=== PATIENT | male | born 1960 | race Caucasian/White ===

== ENCOUNTER 2019-08-10 14:18 | Outpatient (CLI) | payer OTHER ==
--- NOTE | 2019-08-10 14:37 | RAD ---
XR Chest Pa Lat @ [facility] History: Dyspnea Comparison: None. Findings: Lungs are clear. No pneumothorax or effusion. Cardiac silhouette and mediastinal contours a re within normal limits. No acute osseous abnormality. Impression: No acute intrathoracic abnormality.
== END 2019-08-10 14:19 | disposition home or self-care (01) ==
LOC: RAD 14:18
PROVIDERS: ATTEND Internal Medicine Pulmonary Disease
DX: R06.00 Dyspnea, unspecified (principal)
CPT/HCPCS: 71046

== ENCOUNTER 2023-09-14 18:18 | Emergency (ER) | payer MEDICARE, OTHER ==
[~2023-09-14 18:18] MED LIST: Iopamidol-370 76% 500 ML MDV (1 ML CHARGE) ONE
[2023-09-14 20:09] LABS: #Basophils 0.1 thou/uL (0.0-0.2); #Eosinphils 0.3 thou/uL (0.0-0.7); #Monocytes 0.5 thou/uL (0.11-0.59); #Neutrophils 3.8 thou/uL (1.40-6.50); %Basophils 0.7 % (0.0-1.0); %Eosinophils 3.5 % (0.0-10.0); %Lymphocytes 37.6 % (21.0-51.0); %Monocytes 6.3 % (0.0-10.0); %Neutrophils 51.8 % (42.0-75.0); Hemoglobin 16.2 g/dL (14.0-18.0); Mean Corpuscular HGB CONC 33.8 g/dL (32.0-36.0); Mean Corpuscular Hemoglobin 30.8 pg (27.0-31.0); Mean Corpuscular Volume 91.3 fl (78.0-98.0); Mean Platelet Volume 9.4 fL (7.4-10.4); Platelet Count 223 10x3/uL (130-400); RBC Distribution Width 13.1 % (11.5-14.5); Red Blood Cell (RBC) Count 5.26 mill/uL (4.70-6.10); White Blood Cell (WBC) Count 7.4 10x3/uL (4.8-10.8)
[2023-09-14 20:34] LABS: ALT (SGPT) 31 U/L (8-55); AST (SGOT) 28 U/L (5-34); Albumin 4.5 g/dL (3.4-4.8); Alkaline Phosphatase 58 U/L (40-110); Anion Gap 12 mmol/L (10-20); BUN (Urea Nitrogen) 8 mg/dL (8.4-25.7); Bilirubin, Total 1.2 mg/dL (0.2-1.2); Calc. Creatinine Clearance 0 mL/min (70-130); Calcium 9.5 mg/dL (7.8-10.44); Carbon Dioxide 27 mmol/L (23-31); Chloride 102 mmol/L (98-107); Estimated GFR 88; Globulin 3.4 g/dL (2.4-3.5); Glucose 115 mg/dL (80-115); Potassium 3.7 mmol/L (3.5-5.1); Protein, Total 7.9 g/dL (5.8-8.1); Sodium 137 mmol/L (136-145)
== END 2023-09-14 22:20 | disposition home or self-care (01) ==
LOC: ERS 18:18
DX: K42.9 Umbilical hernia without obstruction or gangrene (principal); J44.9 Chronic obstructive pulmonary disease, unspecified; E11.9 Type 2 diabetes mellitus without complications; I10 Essential (primary) hypertension; E78.5 Hyperlipidemia, unspecified; Z87.891 Personal history of nicotine dependence; Z79.899 Other long term (current) drug therapy; Z79.84 Long term (current) use of oral hypoglycemic drugs
CPT/HCPCS: 74177; 80053; 83605; 85025; Q9967

== ENCOUNTER 2023-10-08 11:20 | Outpatient (CLI) | payer MEDICARE ==
[2023-10-08 13:42] LABS: #Basophils 0.1 10x3/uL (0.0-0.2); #Eosinphils 0.4 10x3/uL (0.0-0.5); #Monocytes 0.6 10x3/uL (0.0-1.1); #Neutrophils 3.3 10x3/uL (1.5-8.4); %Eosinophils 5.1 % (0.0-6.0); %Lymphocytes 40.4 % (18.0-47.0); %Monocytes 7.6 % (0.0-10.0); %Neutrophils 45.8 % (40.0-75.0); Hematocrit 47.3 % (38.8-50.0); Hemoglobin 16.5 g/dL (13.5-17.5); Mean Corpuscular HGB CONC 34.9 g/dL (32.0-36.0); Mean Corpuscular Hemoglobin 31.9 pg (27.0-33.0); Mean Corpuscular Volume 91.5 fl (81.2-95.1); Platelet Count 223 10x3/uL (150-450); Red Blood Cell (RBC) Count 5.17 10x6/uL (4.32-5.72); White Blood Cell (WBC) Count 7.3 10x3/uL (3.5-10.5)
[2023-10-08 13:44] LABS: Anion Gap 15 mmol/L (10-20); BUN (Urea Nitrogen) 13 mg/dL (8.4-25.7); Calc. Creatinine Clearance 0 mL/min (70-130); Calcium 9.8 mg/dL (7.8-10.44); Carbon Dioxide 26 mmol/L (23-31); Chloride 103 mmol/L (98-107); Estimated GFR 74; Glucose 110 mg/dL (80-115); Potassium 4.6 mmol/L (3.5-5.1); Sodium 139 mmol/L (136-145)
== END 2023-10-08 11:21 | disposition home or self-care (01) ==
LOC: LABBT 11:20
PROVIDERS: ATTEND Surgery
DX: Z01.818 Encounter for other preprocedural examination (principal); K43.9 Ventral hernia without obstruction or gangrene
CPT/HCPCS: 71046; 80048; 85025; 93005; 93010

== ENCOUNTER 2023-10-14 08:19 | Day surgery (SDC) | payer MEDICARE ==
[2023-10-08 12:30] VITALS: BMI 42.2
[2023-10-14] MEDS ORDERED: Bupivacaine 0.25% HCL 30 ML VIAL ONE (10:36)
[2023-10-14] MEDS ORDERED: EPINEPHrine 1 MG/ML VIAL ONE (10:36)
[2023-10-14] MEDS ORDERED: PROPOFOL 20 ML ONE ×2 (10:50→12:22)
[2023-10-14] MEDS ORDERED: Lidocaine 1% PF 5 ML VIAL ONE (10:52)
[2023-10-14] MEDS ORDERED: Rocuronium Bromide 10 MG/ML (10ML VIAL) ONE (10:52)
[2023-10-14] MEDS ORDERED: Midazolam HCl 2 mg/2 ml Vial ONE (11:29)
[2023-10-14] MEDS ORDERED: CEFAZOLIN 2 GM VIAL ONE (11:43)
[2023-10-14] MEDS ORDERED: Sodium Chloride 0.9% 100 ML ONE (11:43)
[2023-10-14] MEDS ORDERED: Nitroglycerin 2% Ointment 1 INCH/1 GM Packet ONE (11:44)
[2023-10-14] MEDS ORDERED: fentaNYL PF 100 MCG/2 ML SYRINGE ONE ×4 (11:50→13:55)
[2023-10-14] MEDS ORDERED: Dexamethasone 20 MG/5 ML VIAL ONE (12:04)
[2023-10-14] MEDS ORDERED: PHENYLEPHRINE-NS 100 MCG/ML 10 ML SYRINGE ONE (12:04)
[2023-10-14] MEDS ORDERED: ePHEDrine Sulfate 50 MG/10 ML VIAL ONE (12:12)
[2023-10-14] MEDS ORDERED: Ondansetron PF 4 MG/2 ML Vial ONE (12:13)
[2023-10-14] MEDS ORDERED: Esmolol 100 MG/10 ML VIAL ONE (12:18)
[2023-10-14] MEDS ORDERED: SUGAMMADEX SODIUM 200 MG/2 ML VIAL ONE (12:54)
[2023-10-14] MEDS ORDERED: Morphine 4 MG/ML VIAL ONE (13:48)
[2023-10-14] MEDS ORDERED: Morphine 2 MG/ML VIAL ONE ×3 (14:04→14:49)
[2023-10-14] MEDS ORDERED: HYDROcodone/Acetaminophen 5/325 mg Tablet ONE (14:49)
== END 2023-10-14 15:50 | disposition home or self-care (01) ==
LOC: SDC 08:19
PROVIDERS: ATTEND Surgery
PROC: 0WUF4JZ Supplement Abdominal Wall with Synthetic Substitute, Percutaneous Endoscopic Approach (ICD-10-PCS; principal; 2023-10-14)
DX: K43.9 Ventral hernia without obstruction or gangrene (principal); I10 Essential (primary) hypertension; F41.9 Anxiety disorder, unspecified; J44.9 Chronic obstructive pulmonary disease, unspecified; Z79.899 Other long term (current) drug therapy; Z88.8 Allergy status to other drugs, medicaments and biological substances
CPT/HCPCS: 49593; 93005; J0171; 93010; A4314; C1781; J0665; J1100; J2250; J2270; J2272; J2405; J2704; J3490

== ENCOUNTER 2024-03-12 20:26 | Inpatient (IN) | payer MEDICARE ==
[2024-03-12] MEDS ORDERED: Magnesium 2 GM/50 ML BAG (IN WATER) ONE (21:31)
[2024-03-12 21:33] LABS: #Basophils Less than 0.03 10x3/uL (0.0-0.2); #Eosinphils Less than 0.03 10x3/uL (0.0-0.7); %Basophils 0.1 % (0.0-1.0); %Lymphocytes 6.6 % (21.0-51.0); %Neutrophils 85.5 % (42.0-75.0); Hematocrit 40.7 % (42.0-52.0); Hemoglobin 14.2 g/dL (14.0-18.0); Mean Corpuscular HGB CONC 34.9 g/dL (32.0-36.0); Mean Corpuscular Hemoglobin 31.2 pg (27.0-31.0); Mean Corpuscular Volume 89.5 fL (78.0-98.0); Mean Platelet Volume 9.4 fL (7.4-10.4); Platelet Count 216 10x3/uL (130-400); RBC Distribution Width 13.6 % (11.5-14.5); Red Blood Cell (RBC) Count 4.55 mill/uL (4.70-6.10)
[2024-03-12 21:51] LABS: ALT (SGPT) 14 U/L (8-55); AST (SGOT) 12 U/L (5-34); Albumin 3.3 g/dL (3.4-4.8); Alkaline Phosphatase 51 U/L (40-110); Anion Gap 18 mmol/L (10-20); BUN (Urea Nitrogen) 17 mg/dL (8.4-25.7); Bilirubin, Total 1.6 mg/dL (0.2-1.2); Calc. Creatinine Clearance 0 mL/min (70-130); Carbon Dioxide 20 mmol/L (23-31); Chloride 96 mmol/L (98-107); Estimated GFR 88; Globulin 3.4 g/dL (2.4-3.5); Glucose 150 mg/dL (80-115); Lipase 13 U/L (8-78); Magnesium 2.1 mg/dL (1.6-2.6); Potassium 4.2 mmol/L (3.5-5.1); Protein, Total 6.7 g/dL (5.8-8.1); Sodium 130 mmol/L (136-145)
[2024-03-12 21:53] LABS: INR-International Normal Ratio 1.2; PTT 39.8 sec (22.9-36.1); Prothrombin Time 15.3 sec (12.0-14.7)
[2024-03-12 22:03] LABS: Troponin I Less than 0.010 ng/mL (< 0.028)
[2024-03-12] MEDS ORDERED: Cefepime 2 GM VIAL ONE (22:13)
[2024-03-12] MEDS ORDERED: Sodium Chloride 0.9% 100 ML ONE (22:14)
[2024-03-12 22:22] LABS: Influenza A by NAA Not Detected (NotDetected); Influenza B by NAA Not Detected (NotDetected); SARS-CoV-2 NAA Rapid Test Not Detected (NotDetected)
[2024-03-12] MEDS ORDERED: Acetaminophen 650 MG Suppository PR PRN (23:42)
[2024-03-12] MEDS ORDERED: Ketorolac Tromethamine 30 MG (1 mL) VIAL IVP PRN (23:42)
[2024-03-12] MEDS ORDERED: traMADol HCl 50 MG TAB PO PRN (23:42)
[2024-03-13] MEDS: Vancomycin (BATCH) 2.5 GM in Premix 1 BAG IVPB SCH (00:45)
[2024-03-13] MEDS ORDERED: Ipratropium/Albuterol 3 ML NEB NEB PRN (00:50)
[2024-03-13] MEDS ORDERED: GUAIFENESIN SF SOLN 200 MG/10 ML UDCUP PO PRN (00:58)
[2024-03-13] MEDS ORDERED: Benzonatate 100 MG CAP PO PRN (00:58)
[2024-03-13] MEDS ORDERED: Mometasone 200 MCG/Formoterol 5 MCG 120 PUFF INHALER INH PRN (01:03)
[2024-03-13] MEDS ORDERED: PRAMIPEXOLE DI HCL 4.5 MG PO PRN (01:06)
[2024-03-13] MEDS: Ipratropium/Albuterol 3 ML NEB NEB SCH (01:40)
[2024-03-13 02:26] VITALS: BMI 41.5
[2024-03-13] MEDS: Sodium Chloride 0.9% 1,000 ML IV SCH (02:31)
[2024-03-13] MEDS: methylPREDNISolone Sod Succ/PF 125 MG/2 ML VIAL IVP SCH (02:32)
[2024-03-13] MEDS: guaiFENesin/DM ER PO SCH ×2 (02:32→11:51)
[2024-03-13] MEDS: Azithromycin 500 MG in Sodium Chloride 0.9% 250 ML 250 ML IVPB SCH (03:37)
[2024-03-13 04:23] LABS: Legionella Urinary Ag Negative (Negative); Strep pneumo Urine Ag NEGATIVE (NEGATIVE)
[2024-03-13 05:28] LABS: #Basophils Less than 0.03 10x3/uL (0.0-0.2); #Eosinphils Less than 0.03 10x3/uL (0.0-0.7); %Basophils 0.1 % (0.0-1.0); %Lymphocytes 7.7 % (21.0-51.0); %Monocytes 2.6 % (0.0-10.0); %Neutrophils 88.2 % (42.0-75.0); Hematocrit 40.3 % (42.0-52.0); Hemoglobin 13.7 g/dL (14.0-18.0); Mean Corpuscular Hemoglobin 31.4 pg (27.0-31.0); Mean Corpuscular Volume 92.4 fL (78.0-98.0); Mean Platelet Volume 9.5 fL (7.4-10.4); Platelet Count 218 10x3/uL (130-400); RBC Distribution Width 13.3 % (11.5-14.5); Red Blood Cell (RBC) Count 4.36 mill/uL (4.70-6.10)
[2024-03-13 05:42] LABS: Anion Gap 17 mmol/L (10-20); BUN (Urea Nitrogen) 20 mg/dL (8.4-25.7); Calc. Creatinine Clearance 164 mL/min (70-130); Calcium 8.9 mg/dL (7.8-10.44); Carbon Dioxide 16 mmol/L (23-31); Chloride 103 mmol/L (98-107); Estimated GFR 93; Glucose 203 mg/dL (80-115); Potassium 3.7 mmol/L (3.5-5.1); Sodium 132 mmol/L (136-145)
[2024-03-13] MEDS: cefTRIAXone\\ROCEPHIN 1 GM in Sodium Chloride 0.9% 100 ML IVPB SCH (05:47)
[2024-03-13 05:49] LABS: Troponin I Less than 0.010 ng/mL (< 0.028)
[2024-03-13] MEDS: methylPREDNISolone Sod Succ 40 MG VIAL IVP SCH (06:59)
[2024-03-13] MEDS ORDERED: Non-Formulary Item 1 EACH (Losartan Potassium [Losartan Potassium] 100 MG Tablet) PO SCH (09:00)
[2024-03-13] MEDS: Losartan 25 MG TAB PO SCH (10:27)
[2024-03-13] MEDS: metFORMIN 500 MG TAB PO SCH (10:27)
[2024-03-13] MEDS: dilTIAZem CD 180 MG CAP PO SCH (10:28)
[2024-03-13] MEDS: Famotidine 20 MG TAB PO SCH (10:48)
[2024-03-13] MEDS: clonazePAM 1 MG TAB PO PRN (10:48)
[2024-03-13] MEDS ORDERED: Glucagon 1 MG/ML KIT IM PRN (12:51)
[2024-03-13] MEDS ORDERED: Dextrose 50% Abboject 50 ML SYRINGE SLOW IVP PRN (12:51)
[2024-03-13] MEDS ORDERED: Dextrose 5% in Water 1,000 ML IV PRN (12:51)
[2024-03-13] MEDS ORDERED: rOPINIRole HCl 2 MG TAB PO SCH (15:00)
[2024-03-13] MEDS: ROPINEROLE PO SCH (16:02)
[2024-03-13] MEDS: Doxepin HCl 25 MG CAP PO SCH (22:06)
[2024-03-14 05:52] LABS: #Basophils Less than 0.03 10x3/uL (0.0-0.2); #Eosinphils Less than 0.03 10x3/uL (0.0-0.7); %Basophils 0.1 % (0.0-1.0); %Lymphocytes 8.9 % (21.0-51.0); %Neutrophils 85.3 % (42.0-75.0); Hematocrit 39.9 % (42.0-52.0); Hemoglobin 13.6 g/dL (14.0-18.0); Mean Corpuscular HGB CONC 34.1 g/dL (32.0-36.0); Mean Corpuscular Hemoglobin 30.9 pg (27.0-31.0); Mean Corpuscular Volume 90.7 fL (78.0-98.0); Mean Platelet Volume 9.9 fL (7.4-10.4); Platelet Count 253 10x3/uL (130-400); RBC Distribution Width 13.6 % (11.5-14.5)
[2024-03-14 06:10] LABS: ALT (SGPT) 15 U/L (8-55); AST (SGOT) 12 U/L (5-34); Albumin 2.7 g/dL (3.4-4.8); Alkaline Phosphatase 55 U/L (40-110); Anion Gap 17 mmol/L (10-20); BUN (Urea Nitrogen) 27 mg/dL (8.4-25.7); Bilirubin, Total 0.3 mg/dL (0.2-1.2); Calc. Creatinine Clearance 149 mL/min (70-130); Calcium 9.4 mg/dL (7.8-10.44); Carbon Dioxide 19 mmol/L (23-31); Chloride 107 mmol/L (98-107); Estimated GFR 83; Globulin 3.9 g/dL (2.4-3.5); Glucose 261 mg/dL (80-115); Magnesium 2.5 mg/dL (1.6-2.6); Potassium 4.2 mmol/L (3.5-5.1); Protein, Total 6.6 g/dL (5.8-8.1); Sodium 139 mmol/L (136-145)
[2024-03-14] MEDS: Insulin Lispro 100 UNIT/ML 10 ML VIAL SC PRN (07:20)
[2024-03-14 09:56] VITALS: BP 122/69
[2024-03-14] MEDS: Furosemide 20 MG TAB PO SCH (10:21)
[2024-03-14] MEDS: Empagliflozin 25 MG TAB PO SCH ×2 (10:23)
[2024-03-14 11:38] VITALS: TEMP 99.2
[2024-03-14] MEDS: Acetaminophen 325 MG TAB PO PRN (11:38)
== END 2024-03-14 12:55 | disposition home or self-care (01) | DRG 193 ==
LOC: ERS 20:26 → MSONC 23:46
PROVIDERS: ADMIT Internal Medicine; ATTEND Internal Medicine
DX: J18.9 Pneumonia, unspecified organism (principal); J96.20 Acute and chronic respiratory failure, unspecified whether with hypoxia or hypercapnia; J44.0 Chronic obstructive pulmonary disease with (acute) lower respiratory infection; J44.1 Chronic obstructive pulmonary disease with (acute) exacerbation; E11.9 Type 2 diabetes mellitus without complications; G47.33 Obstructive sleep apnea (adult) (pediatric); E78.5 Hyperlipidemia, unspecified; I10 Essential (primary) hypertension; F41.9 Anxiety disorder, unspecified; G25.81 Restless legs syndrome; Z88.8 Allergy status to other drugs, medicaments and biological substances; Z99.81 Dependence on supplemental oxygen; Z79.899 Other long term (current) drug therapy; Z87.891 Personal history of nicotine dependence; Z79.84 Long term (current) use of oral hypoglycemic drugs
CPT/HCPCS: 36415; 36416; 71045; 71275; 80048; 80053; 83605; 83690; 83735; 83880; 84484; 85025; 85610; 85730; 87040; 87449; 87633; 87798; 87899; 93005; 94640; 96374; 96375; J0456; J0692; J0696; J1815; J2920; J2930; J3370; J3475; J3490; J7050; J7620; Q9967